=== PATIENT | male | born 1990 | race Two or more races ===

== ENCOUNTER 2021-03-25 16:31 | Emergency (ER) | payer BC ==
[~2021-03-25] VITALS: Ht 175.3 cm; Wt 63.5 kg
[2021-03-25 17:25] VITALS: BP 141/95
[2021-03-25] MEDS ORDERED: FLUORESCEIN SOD OPTH TEST STRIP OP ONE (18:00)
== END 2021-03-25 18:27 | disposition home or self-care (01) ==
LOC: ER 16:31
DX: T15.02XA Foreign body in cornea, left eye, initial encounter (principal); W45.8XXA Other foreign body or object entering through skin, initial encounter; Y93.89 Activity, other specified; Y92.89 Other specified places as the place of occurrence of the external cause; Y99.8 Other external cause status
CPT/HCPCS: 65222